=== PATIENT | female | born 1945 | race Caucasian/White ===

== ENCOUNTER → 2016-10-04 | Outpatient (CLI) | payer MEDICARE, BC ==
[~2016-10-04] MED LIST: AMIO200T2 PO; CALC-656 PO; LOSA100T47 PO; MULT1TAB59 PO; NEBI10TA2 PO; PRAV20TA2 PO; TRAMADOL PO; VENL37.570 PO
--- NOTE | 2016-10-04 13:48 | RADRPT ---
PROCEDURE: XR Right hip and pelvis. CLINICAL INDICATION: Right hip pain. Pelvic pain. Postop. TECHNIQUE: Three views. Frontal pelvis. Frontal and lateral right hip. COMPARISON: 04/12/2015. FINDINGS: There is no fracture or dislocation. The soft tissues are normal. There is a right hip total arthroplasty which appears satisfactory. The left hip is grossly normal. There is no lytic or blastic lesion. The upper pelvis is not completely included on the image. IMPRESSION: 1. Satisfactory postoperative appearance of the right hip. 2. Grossly normal appearance of the left hip. RPTAT: QQ .Andrae Carrillo MD, Date Time Electronically viewed and signed by .Andrae Carrillo MD, on 10/04/2016 13:48 .R/
--- NOTE | 2016-10-04 13:49 | RADRPT ---
PROCEDURE: XR Knees. CLINICAL INDICATION: Bilateral knee pain. TECHNIQUE: Total of eight views. Weightbearing frontal, oblique, and lateral views of the both kn ees. Patellar views of both knees. COMPARISON: 10/19/2014. FINDINGS: There is no fracture or dislocation. The soft tissues are normal. There are degenerative changes of both hips with joint space narrowing, osteophytes, and subarticula r sclerosis. There is bilateral medial joint compartment narrowing and patellofemoral joint compart ment narrowing. There is severe degenerative change of the patellofemoral joints with deformity. There is no lytic or blastic lesion. There is no radiopaque foreign body. IMPRESSION: 1. Degenerative changes of both knees. Severe degenerative changes of the patellofemoral joints, s imilar to the prior study. 2. No acute abnormality. RPTAT: QQ .Andrae Carrillo MD, MD Date Time Electronically viewed and signed by .Andrae Carrillo MD, on 10/04/2016 13:49 .R/
== END | disposition home or self-care (01) ==
LOC: HKI 09:01
PROVIDERS: ATTEND Orthopaedic Surgery
DX: Z47.1 Aftercare following joint replacement surgery (principal); Z96.641 Presence of right artificial hip joint; M17.0 Bilateral primary osteoarthritis of knee
CPT/HCPCS: 73502; 73564; G0463